=== PATIENT | male | born 1985 | race Caucasian/White ===

== ENCOUNTER 2025-08-20 12:17 | Emergency (ER) | payer OTHER ==
[~2025-08-20] VITALS: Ht 157.5 cm; Wt 72.7 kg
[2025-08-20 13:40] VITALS: TEMP 97.7
[2025-08-20 14:49] LABS: PLATELET COUNT (AUTO) 366 K/uL (150-450); RED BLOOD CELL COUNT(AUTO) 4.22 MIL/uL (4.50-5.90); RED CELL DISTRIBUTION WIDTH 13.5 % (11.5-14.5); WHITE BLOOD COUNT (AUTO) 6.2 K/uL (4.5-11.0)
[2025-08-20 14:55] LABS: CALCIUM, TOTAL 9.1 mg/dL (8.8-10.5); CREATININE 0.75 mg/dL (0.60-1.30); GLOMERULAR FILTR. RATE CALC > 60 mL/min (>60); GLUCOSE,RANDOM 108 mg/dL (70-110); SODIUM SERUM 140 mmol/L (136-145); UREA NITROGEN, BLOOD 9 mg/dL (7-18)
[2025-08-20] MEDS ORDERED: 0.9% SODIUM CHLORIDE 10 ML SYRINGE IVP ONE (15:03)
[2025-08-20] MEDS ORDERED: SODIUM CHLORIDE 0.9% 100 ML ONE (15:03)
[2025-08-20] MEDS ORDERED: IOHEXOL 350 MG/ML 100 ML VIAL ONE (15:03)
[2025-08-20 19:20] VITALS: BP 140/65; PULSE 52; RESP 17; O2SAT 99
== END 2025-08-20 21:19 ==
LOC: EMS 12:31
DX: R22.0 Localized swelling, mass and lump, head (principal)
CPT/HCPCS: 99285; 70487; 80048; 85025; 36415; Q9967; J7050